=== PATIENT | female | born 1965 | race Caucasian/White ===

== ENCOUNTER 2016-12-03 07:30 | Day surgery (SDC) | payer OTHER ==
[~2016-12-03] VITALS: Ht 167.6 cm; Wt 72.0 kg
[~2016-12-03 07:30] MED LIST: ASCO1CAP4 PO; BIOT5CAP9 PO; CRAN400T4 PO; DOCO2CRE TOP; FLUT9.9S NS; GARL100T PO; KRIL500C PO; LACT1CAP65 PO; MULT-1018 PO; PENC5CRE TP; VALA500T2 PO
[2016-12-03] MEDS ORDERED: VENL150C PO (08:09)
[2016-12-03] MEDS ORDERED: fentaNYL-PF 50 mCg/mL 2 mL Inj IVPUSH PRN ×2 (08:10→09:25)
[2016-12-03 08:21] VITALS: BP 106/67; PULSE 58; RESP 16; O2SAT 99
[2016-12-03 09:16] VITALS: BP 113/74; PULSE 62; RESP 16; O2SAT 99
[2016-12-03] MEDS ORDERED: 0.9% Sodium Chloride 1,000 ML IV PRN (09:23)
[2016-12-03] MEDS ORDERED: Sodium Chloride LOK Flush 10 mL Syringe IV PRN (09:25)
[2016-12-03 09:30] VITALS: BP 105/72; PULSE 59; RESP 16; O2SAT 95
--- NOTE | 2016-12-03 10:08 | ENDO ---
[address] [address] ENDOSCOPY PROCEDURE PATIENT: MARA ALVARADO : 1965 MR#: [id number] ADMIT: 12/03/2016 JOB ID: [id number] DATE: 12/03/2016 PROCEDURE: Colonoscopy. INDICATIONS: Screening. The patient's ASA classification is 1. Mallampati score was 1. MEDICATIONS: 1. Versed 5 mg. 2. Fentanyl 100 mcg. INSTRUMENT USED: PCF H 190 DL. PREPARATION QUALITY: Was good. PROCEDURE DETAILS: After informed consent was obtained, the patient was brought into the GI suite, where she was placed on oxygen via nasal cannula and monitored with continuous pulse oximeter, telemetry and blood pressure monitoring. A time-out was performed. Then, she was placed the left lateral decubitus position and medications were administered for sedation. Digital rectal examination was performed and was unremarkable. The colonoscope was then inserted into the rectum and advanced under direct visualization to the cecum, which was identified by the presence of the ileocecal valve and appendiceal orifice. Once the cecum was reached, the colonoscope was withdrawn back to the rectum. Mucosa and lumen were examined. In the rectum, retroflexion was performed. Following retroflexion, remaining air in the rectum was suctioned, and the procedure was completed. FINDINGS: Scattered diverticula were seen throughout the left side of the colon. IMPRESSION: Left-sided diverticulosis, otherwise normal examination from rectum to cecum. RECOMMENDATIONS: 1. Fiber rich diet. 2. Repeat colonoscopy in 10 years, sooner if symptoms should dictate. COMPLICATIONS: None. ESTIMATED BLOOD LOSS: 0.
== END 2016-12-03 23:59 | disposition home or self-care (01) ==
LOC: END 07:30
PROVIDERS: ATTEND Internal Medicine Gastroenterology
DX: Z12.11 Encounter for screening for malignant neoplasm of colon (principal); K57.30 Diverticulosis of large intestine without perforation or abscess without bleeding; Z83.71 Family history of colonic polyps; E78.5 Hyperlipidemia, unspecified; N39.3 Stress incontinence (female) (male); F32.9 Major depressive disorder, single episode, unspecified; J30.9 Allergic rhinitis, unspecified
CPT/HCPCS: G0105; G0500; J7030